=== PATIENT | female | born 1955 | race Caucasian/White ===

== ENCOUNTER 2020-11-21 13:09 | Outpatient (CLI) | payer MEDICARE ==
[~2020-11-21 13:09] MED LIST: AMLO5TAB4 PO; ATOR20TA37 PO; CITA40TA12 PO; DOXA2TAB9 PO; DOXA4TAB3 PO; HYDR-3342 PO; HYDR25TA6 PO; LOSA100T2 PO
== END 2020-11-21 23:59 | disposition home or self-care (01) ==
LOC: CFH 13:09
PROVIDERS: ATTEND Internal Medicine Cardiovascular Disease
DX: I08.8 Other rheumatic multiple valve diseases (principal); I11.9 Hypertensive heart disease without heart failure
CPT/HCPCS: 93306

== ENCOUNTER 2021-02-25 22:31 | Emergency (ER) | payer MEDICARE ==
[~2021-02-25] VITALS: Ht 170.2 cm; Wt 84.1 kg
--- NOTE | 2021-02-25 23:44 | NUR ---
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
[2021-02-26] MEDS ORDERED: ACETAMINOPHEN 500 MG TABLET PO ONE
[2021-02-26] MEDS ORDERED: ACETAMINOPHEN 500 MG TABLET ONE (00:32)
[2021-02-26 00:54] LABS: BASOPHILS % (AUTO) 1 % (0-1)
[2021-02-26 01:04] LABS: EOSINOPHILS % (AUTO) 2 % (1-7); LYMPHOCYTES % (AUTO) 39 % (22-44); MEAN CORPUSCULAR HEMOGLOBIN 32.2 pg (27.0-34.8); MEAN CORPUSCULAR HGB CONC 34.5 g/dL (32.4-35.8); MEAN PLATELET VOLUME 8.2 fL (7.4-10.4); MONOCYTES % (AUTO) 9 % (2-9); NEUTROPHILS % (AUTO) 49 % (42-75); PLATELET COUNT 244 x10^3/uL (130-400); RED CELL DISTRIBUTION WIDTH 13.3 % (9.6-15.2)
[2021-02-26 01:15] LABS: ALBUMIN 3.5 g/dL (3.4-5.0); ANION GAP 6 mmol/L (5-15); CALCIUM 8.9 mg/dL (8.5-10.1); CHLORIDE 106 mmol/L (98-107)
[2021-02-26] MEDS ORDERED: OMNIPAQUE 350 MG/ML, 100ML BOTTLE ONE (02:01)
[2021-02-26 02:20] VITALS: BP 119/68
--- NOTE | 2021-02-26 02:39 | NUR ---
PT [facility] IN [facility], PROVIDED WARM BLANKET. AWAITING CT RESULTS
== END 2021-02-26 03:20 | disposition home or self-care (01) ==
LOC: ED 23:00
DX: R51.9 Headache, unspecified (principal); G50.0 Trigeminal neuralgia; I10 Essential (primary) hypertension; E78.5 Hyperlipidemia, unspecified; K21.9 Gastro-esophageal reflux disease without esophagitis; Z86.73 Personal history of transient ischemic attack (TIA), and cerebral infarction without residual deficits; F17.200 Nicotine dependence, unspecified, uncomplicated
CPT/HCPCS: 36415; 70450; 70496; 70498; 80048; 82040; 85025; 99285; Q9967